=== PATIENT | female | born 1940 | race Caucasian/White ===

== ENCOUNTER 2022-02-18 10:29 | Observation (INO) | payer MEDICARE, OTHER, SELFPAY ==
[2022-02-18 10:30] VITALS: BP 173/81; PULSE 82; RESP 18; TEMP 36.6; O2SAT 99; BMI 29.5
--- NOTE | 2022-02-18 10:49 | ED_ITS ---
HPI - Neuro Symptoms/Deficit General Chief Complaint: Altered Mental Status Stated Complaint: possiable stroke Time Seen by Provider: 02/18/22 10:49 Source: patient Mode of arrival: Ambulatory Limitations: no limitations History of Present Illness HPI Narrative: Patient is an 7-year-old female visiting this area from [place]. She was out with her family for breakfast this morning, about 8:45. She describes sudden onset of dizziness which is now resolved. She had no headache, no visual changes, no focal weakness or numbness. Family members noted mild slurred speech, which click resolved. All symptoms resolved within 15 minutes. She has no history of stroke or TIA. She does not take aspirin or blood thinners. She feels well at this time. She denies recent illness. She has no URI symptoms, cough or dy spnea. She has no chest pain or palpitations. On Anticoagulants: No Review of Systems Constitutional Constitutional: Denies body ache(s), Denies chills, Denies fatigue, Denies fever(s), Denies night sweats and Denies weakness Eyes Eyes: Denies change in vision ENT Ears, Nose, Mouth, and Throat: Reports dizziness, Denies sinus pain, Denies sinus pressure and Denies sore throat Cardiovascular Cardiovascular: Denies chest pain, Denies syncope, Denies rapid heart rate, Denies pedal edema, Reports edema and Denies dyspnea Respiratory Respiratory: Denies cough and Denies dyspnea Gastrointestinal Gastrointestinal: Denies abdominal pain, Denies nausea and Denies vomiting Integumentary/Breasts Skin/Breast: Denies change in pigmentation, Denies new lesions and Denies rash Neurologic Neurologic: Denies confusion, Reports dizziness, Denies syncope and Denies weakness Psychiatric Psychiatric: Denies confusion Endocrine Endocrine: Denies fatigue Hematologic/Lymphatic On Anticoagulants: No Allergic/Immunologic Allergic/Immunologic: Denies seasonal rhinorrhea Patient History Medical History (Updated 02/18/22 @ 18:50 by Alec Smith MD) Adrenal insufficiency Hyperlipidemia Hypertension Hypothyroidism Neurofibromatosis Social History household members: none Smoking Status: Never smoker Smoking Status: Never smoker Substance Use Type: does not use Exam Initial Vital Signs Initial Vital Signs: Vital Signs Temperature 98 F 02/18/22 10:30 Pulse Rate 82 02/18/22 10:30 Respiratory Rate 18 02/18/22 10:30 Blood Pressure 173/81 H 02/18/22 10:30 Pulse Oximetry 99 02/18/22 10:30 Const General: cooperative, comfortable and No acute distress [facility] Head: normocephalic and atraumatic Face and sinus: normal facial exam Mouth: oropharynx normal Throat: posterior oropharynx normal Eyes General: Yes appearance normal, both eyes and all related structures Pupils: PERRL EOM: EOM intact bilaterally and EOM abnormal Other: No visual field cuts. Neck Neck: No lymphadenopathy and other (No bruit) Thyroid: thyroid normal Chest Chest: normal inspection of the chest Resp Auscultation: clear to auscultation bilaterally Cardio Rate: regular rate Rhythm: regular rhythm Heart Sounds: S1 normal, S2 normal, no click, no murmurs and no rubs GI Inspection: normal to inspection Palpation: soft, No mass and No tender Back/Spine/Pelvis Back: normal to inspection and No CVA tenderness Skin General: no rashes or lesions noted Neuro General: patient alert, patient awake, no meningeal signs and no focal motor deficits Extrem General: normal to inspection, full ROM, no pedal edema and no calf tenderness Psych Mental Status: mental status grossly normal Course Course Course Narrative: The patient had at NIHSS of [address] unit this hospital is currently disabled. Head CT and head neck CT was arranged as scheduled hospital. She is returning eminence, she developed left-sided weakness and numbness with place facial droop just prior to arrival. Minutes later as I arrived at her room, symptoms resolved. The episode was probably 10 minutes only. She then had a 2 minute episode of dysarthria, without motor deficits. This quickly resolved. CT results were obtained. She is not a candidate for tPA. There are new acute findings to prevent aspirin. Aspirin 324 mg was given. There are no acute findings on the head CT, or head neck CTA. The case was discussed with Stroke Neurology at [facility], Dr. Osman. She is normal sinus rhythm, her glucose is normal. She has experienced 3 events, all with different findings. There is no obvious focus identified with the evaluation thus far. Dual platelet therapy was suggested. Plavix was added to the aspirin dose.. Follow-up echo, MRI with and without contrast is recommended. The patient has adrenal insufficiency, an extra dose of hydrocortisone was given. The situation was discussed with Dr. Flores, hospitalist. The patient will be admitted for ongoing evaluation. Orders Ordered: ED Orders 02/18/22 10:48 Complete Blood Count AUTO DIFF Stat Comprehensive Metabolic Panel Stat Prothrombin Time INR Stat Troponin & CK Cardiac Panel Stat 02/18/22 10:51 XR chest 1V Stat 02/18/22 10:52 Urine Drug Screen, Rapid Stat 02/18/22 11:20 COVID19 -Nasal RAPID/Pre-Proc Stat Acetaminophen (Acetaminophen 325 Mg Tablet) 650 mg PO Q6HR PRN PRN Reason: pain Enoxaparin Sodium (Enoxaparin 40 Mg/0.4 Ml Syringe) 40 mg SUBCUT DAILY DAVID Sodium Chloride (Normal Saline 0.9%) 1,000 mls @ 100 mls/hr IV CONT DAVID Stop: 02/19/22 04:29 Magnesium Hydroxide (Magnesium Hydroxide 30 Ml Udc) 30 ml PO DAILY PRN PRN Reason: Constipation Discontinued Medications Aspirin (Aspirin 81 Mg Chew Tab) 324 mg PO NOW ONE Stop: 02/18/22 14:31 Last Admin: 02/18/22 14:45 Dose: 324 mg Documented by: ESSIE Atorvastatin Calcium (Atorvastatin 20 Mg Tablet) 60 mg PO NOW ONE Stop: 02/18/22 16:44 Last Admin: 02/18/22 17:01 Dose: 60 mg Documented by: GREGORY Clopidogrel Bisulfate (Clopidogrel 75 Mg Tablet) 75 mg PO NOW ONE Stop: 02/18/22 16:44 Last Admin: 02/18/22 17:02 Dose: 75 mg Documented by: GREGORY Hydrocortisone (Hydrocortisone 10 Mg Tablet) 20 mg PO NOW ONE Stop: 02/18/22 17:09 Sodium Chloride (Normal Saline 0.9%) 1,000 mls @ 150 mls/hr IV CONT DAVID Stop: 02/18/22 18:20 Last Infusion: 02/18/22 14:46 Dose: 150 mls/hr Documented by: Infusion: 02/18/22 11:50 Dose: 0 mls/hr Documented by: Admin: 02/18/22 11:27 Dose: 150 mls/hr Documented by: ESSIE Vital Signs Vital signs: Vital Signs - 8 hr 02/18/22 11:35 Pulse Rate 73 Respiratory Rate 18 Blood Pressure 148/72 H Pulse Oximetry 98 MDM - Neuro Symptoms/Deficit Lab Data Result diagrams: 02/18/22 10:48 02/18/22 10:48 Labs: Lab Results 02/18/22 02/18/22 02/18/22 Range/Units 10:48 10:48 10:48 WBC 11.6 H (4.5-11.0) X10^3/uL RBC 5.06 (4.0-5.2) X10^6/uL Hgb 14.0 (12.0-16.0) g/dL Hct 42.4 (36-46) % MCV 83.7 (80-100) fL MCH 27.7 (26-34) PG MCHC 33.1 (30-36) % RDW 17.3 H (11.6-14.8) % Plt Count 298 (150-400) X10^3/uL Neut % (Auto) 80.4 H (50-75) % Lymph % (Auto) 12.7 L (25-40) % [place] % (Auto) 5.4 (3-14) % Eos % (Auto) 0.9 L (2-4) % Baso % (Auto) 0.6 (0-2) % Neut # (Auto) 9300 H (8181-8956) /uL Lymph # (Auto) 1500 (1210-1929) /uL [place] # (Auto) 600 (0-900) /uL Eos # (Auto) 100 (0-450) /uL Baso # (Auto) 100 (0-100) /uL PT 11.1 (10.1-12.7) SECONDS INR 1.0 (0.9-1.3) Sodium 136 L (137-145) mmol/L Potassium 4.2 (3.4-5.1) mmol/L Chloride 105 (98-107) mmol/L Carbon Dioxide 28 (22-32) mmol/L BUN 23 H (7-17) mg/dL Creatinine 0.83 (0.52-1.04) mg/dL Estimated GFR > 60 (>60) mL/min BUN/Creatinine Ratio 27.7 H (6-22) Glucose 120 H (80-110) mg/dL Calcium 8.8 (8.4-10.2) mg/dL Total Bilirubin 0.6 (0.2-1.3) mg/dL AST 21 (14-36) IU/L ALT 15 (<35) IU/L Alkaline Phosphatase 57 (38-126) U/L Total Creatine Kinase 29 L (30-135) U/L CK-MB (CK-2) TNP CK-MB (CK-2) Rel Index TNP Troponin I < 0.012 (0.01-0.034) ng/mL Total Protein 6.7 (6.3-8.2) g/dL Albumin 3.9 (3.5-5.0) g/dL Globulin 2.8 (1.7-4.1) g/dL Albumin/Globulin Ratio 1.4 (1.0-2.8) SARS-CoV-2 (PCR) (Negative) 02/18/22 Range/Units 11:20 WBC (4.5-11.0) X10^3/uL RBC (4.0-5.2) X10^6/uL Hgb (12.0-16.0) g/dL Hct (36-46) % MCV (80-100) fL MCH (26-34) PG MCHC (30-36) % RDW (11.6-14.8) % Plt Count (150-400) X10^3/uL Neut % (Auto) (50-75) % Lymph % (Auto) (25-40) % [place] % (Auto) (3-14) % Eos % (Auto) (2-4) % Baso % (Auto) (0-2) % Neut # (Auto) (9273-9284) /uL Lymph # (Auto) (7517-6979) /uL [place] # (Auto) (0-900) /uL Eos # (Auto) (0-450) /uL Baso # (Auto) (0-100) /uL PT (10.1-12.7) SECONDS INR (0.9-1.3) Sodium (137-145) mmol/L Potassium (3.4-5.1) mmol/L Chloride (98-107) mmol/L Carbon Dioxide (22-32) mmol/L BUN (7-17) mg/dL Creatinine (0.52-1.04) mg/dL Estimated GFR (>60) mL/min BUN/Creatinine Ratio (6-22) Glucose (80-110) mg/dL Calcium (8.4-10.2) mg/dL Total Bilirubin (0.2-1.3) mg/dL AST (14-36) IU/L ALT (<35) IU/L Alkaline Phosphatase (38-126) U/L Total Creatine Kinase (30-135) U/L CK-MB (CK-2) CK-MB (CK-2) Rel Index Troponin I (0.01-0.034) ng/mL Total Protein (6.3-8.2) g/dL Albumin (3.5-5.0) g/dL Globulin (1.7-4.1) g/dL Albumin/Globulin Ratio (1.0-2.8) SARS-CoV-2 (PCR) Negative (Negative) Point of Care Testing Glucose POC 117 Imaging Data Chest x-ray: Radiologist's Impression: No acute findings. Head CT without contrast/head and neck CTA.: Radiologist's Impression: No acute process involving the arterial tree. ECG Data Attestation: I personally reviewed and interpreted this ECG as follows: (Normal sinus rhythm the 70 beats per minute. Normal intervals. Low-voltage QRS. No acute ST T wave changes.) Critical Care Time Critical Care Time Critical Care Time: Yes Total Critical Care Time: 75 Attestation: Patient's care included initial assessment, repeat clinical evaluations, evaluation of Radiology, EKG and lab data. Multiple clinical decisions were made. Expert consultation was obtained. The clinical situation was discussed with the patient. The case was presented to the hospitalist for admission. Discharge Plan Departure Patient Disposition: Home Clinical Impression: Brain TIA, Hypothyroidism, Hypertension, Hyperlipidemia, Adrenal insufficiency
--- NOTE | 2022-02-18 10:51 | DI.RAD.S_ITS ---
PROCEDURE: XR CHEST 1V INDICATIONS: TIA TECHNIQUE: One view of the chest was acquired. COMPARISON: None. FINDINGS: Surgical changes and devices: None. Lungs and pleura: Lungs are clear. No pleural effusions or pneumothorax. Mediastinum: Mediastinal contours appear normal. Heart size is normal. Bones and chest wall: No suspicious bony lesions. Overlying soft tissues appear unremarkable. IMPRESSION: No acute process. Dictated by: Chantal Schaffer M.D. on 02/18/2022 at 11:10 Approved by: Chantal Schaffer M.D. on 02/18/2022 at 11:11
[2022-02-18 11:00] LABS: Add Manual Diff / Slide Review NO; Basophils Absolute Auto 100 /uL (0-100); Basophils Percent Auto 0.6 % (0-2); Eosinophils Absolute Auto 100 /uL (0-450); Eosinophils Percent Auto 0.9 % (2-4); Hematocrit 42.4 % (36-46); Lymphocytes Absolute Auto 1500 /uL (1100-4500); Lymphocytes Percent Auto 12.7 % (25-40); Mean Corpuscular HGB Conc 33.1 % (30-36); Mean Corpuscular Hemoglobin 27.7 PG (26-34); Mean Corpuscular Volume 83.7 fL (80-100); Monocytes Absolute Auto 600 /uL (0-900); Monocytes Percent Auto 5.4 % (3-14); Neutrophils Absolute Auto 9300 /uL (1500-7000); Neutrophils Percent Auto 80.4 % (50-75); Platelet Count 298 X10^3/uL (150-400); Red Blood Cell Count 5.06 X10^6/uL (4.0-5.2); Red Cell Distribution Width 17.3 % (11.6-14.8); White Blood Cell Count 11.6 X10^3/uL (4.5-11.0)
[2022-02-18 11:02] LABS: Prothrombin Time 11.1 SECONDS (10.1-12.7)
[2022-02-18 11:08] LABS: Alanine Aminotransferase 15 IU/L (<35); Albumin 3.9 g/dL (3.5-5.0); Albumin Globulin Ratio 1.4 (1.0-2.8); Alkaline Phosphatase 57 U/L (38-126); Aspartate Aminotransferase 21 IU/L (14-36); BUN Creatinine Ratio 27.7 (6-22); Bilirubin Total 0.6 mg/dL (0.2-1.3); Blood Urea Nitrogen 23 mg/dL (7-17); Calcium 8.8 mg/dL (8.4-10.2); Carbon Dioxide 28 mmol/L (22-32); Chloride 105 mmol/L (98-107); Creatine Kinase 29 U/L (30-135); Estimated Glomerular Filt Rate > 60 mL/min (>60); Globulin 2.8 g/dL (1.7-4.1); Glucose 120 mg/dL (80-110); HEMOLYSIS 39 (0-50); Potassium 4.2 mmol/L (3.4-5.1); Sodium 136 mmol/L (137-145); Total Protein 6.7 g/dL (6.3-8.2)
[2022-02-18 11:18] LABS: Troponin I < 0.012 ng/mL (0.01-0.034)
[2022-02-18] MEDS: SODIUM CHLORIDE 0.9% 1,000 ML 150 ML IV (11:27)
[2022-02-18 11:34] LABS: COVID19 -Nasal RAPID Negative (Negative)
[2022-02-18 11:35] VITALS: BP 148/72; PULSE 73; RESP 18; O2SAT 98
--- NOTE | 2022-02-18 11:40 | PC.NURSE ---
Obtained pt care. Introduced self to pt. Pt is resting and reports no symptoms. She is A&O x 4. Plan to transfer to [facility] for CT scan then return to [facility] talked about with pt and daughter due to CT scanner being down. Pt has allergies to codeine, lactose and propoxyphene. Call light within reach. Pt reports she will call if any changes in symptoms.
--- NOTE | 2022-02-18 11:50 | PC.NURSE ---
Report given to [facility] for transport to [facility] for CT scan. Pt is saline locked.
--- NOTE | 2022-02-18 11:56 | PC.NURSE ---
Pt left with [facility] at 1156.
--- NOTE | 2022-02-18 14:27 | PC.NURSE ---
Pt arrived back with [facility] ambulance. EMT reported symptoms have begun again at 1410. Pt exhibited a slight left facial droop, left sided weakness and decreased sensation. Symptoms began resolving spontaneously within 6 mins of starting. Pt denied pain, blurred vision, or headache. MD Smith at bedside. BS check. GBC 130.
--- NOTE | 2022-02-18 14:31 | PC.NURSE ---
EMS reports symptoms are improving in comparison to 1410. Pt also reports symptoms feel like they are improving. By time MD at bedside 1425, all symptoms resolved and back to baseline.
--- NOTE | 2022-02-18 14:43 | PC.NURSE ---
1440: Pt passes swallow eval. Immediately following she has difficulty finding words. Notified MD Smith. He came to bedside. 324mg aspirin given per MD order and NOV.
[2022-02-18] MEDS: ASPIRIN 81 MG CHEW TAB 324 MG PO (14:45)
--- NOTE | 2022-02-18 14:46 | PC.NURSE ---
1446: Pt reports it is now easy to find my words again. Notified MD Smith.
--- NOTE | 2022-02-18 15:00 | PC.NURSE ---
Pt friend at bedside.
[2022-02-18 16:51] VITALS: BMI 29.5
[2022-02-18] MEDS: ATORVASTATIN 20 MG TABLET 60 MG PO (17:01)
[2022-02-18] MEDS: CLOPIDOGREL 75 MG TABLET PO (17:02)
[2022-02-18 18:19] VITALS: BP 158/79; PULSE 73; RESP 20; TEMP 36.8; O2SAT 100
--- NOTE | 2022-02-18 18:23 | DI.MRI.S_ITS ---
PROCEDURE: MR HEAD/BRAIN WO/W CON INDICATIONS: TIA, hx neurofibromatosis, r/o brain mass TECHNIQUE: Noncontrast axial T1 spin echo, axial T2 fast spin echo, sagittal and axial FLAIR, coronal T2 fast spin echo, axial gradient echo, axial diffusion and ADC through the brain. After the administration of contrast, axial and coronal 3D VIBE or T1 spin echo with fat saturation through the brain. COMPARISON: None. FINDINGS: Image quality: Excellent. CSF Spaces: Basal cisterns are patent. No extra-axial fluid collections. Ventricles are normal in size and shape. Brain: No midline shift. No intracranial bleeds or masses. No abnormal intracranial enhancement. The brainstem appears normal. Diffusion-weighted images demonstrate no acute ischemic insults. No chronic ischemic insults. Normal intravascular flow voids are present. Skull and face: Multiple skin lesions consistent history of neurofibromatosis are seen. Calvarial marrow is normal in signal. Orbits appear normal. Sinuses: Sinuses and mastoids appear clear. IMPRESSION: 1. No acute intracranial abnormality. No acute ischemia. 2. No abnormal post gadolinium enhancement. 3. No intracranial masses. Dictated by: Shayan Youngblood M.D. on 02/19/2022 at 10:15 Approved by: Shayan Youngblood M.D. on 02/19/2022 at 10:20
--- NOTE | 2022-02-18 18:24 | DI.ECHO.S_ITS ---
[facility] +---------+ [facility] +---------+ : : [address] : : : : [id number] : : : : Phone: [phone]+ Echocardiogram Report + + :Name: ABHILASH CHENG Study Date: 02/19/2022 Height: 57 in : :[facility] ReadingLocation: Weight: 136 lb : : Gender: Female BSA: 1.5 m2 : :: 1940 Age: 81 yrs BP: 151/75 mmHg: :Reason For Study: TIA : :Ordering Physician: MICHELLE, : :BETHANY Performed By: Ashley Hobbs : :Referring: BETHANY MARTINEZ : + + Interpretation Summary The left ventricle is normal in size. Left ventricular systolic function appears normal without focal wall motion abnormalities. The ejection fraction is estimated to be 65-70%. The right ventricle is normal in size and function. Right ventricular systolic pressure is estimated to be 30 mmHg plus the clinically estimated CVP which cannot be estimated on this exam. The left atrium is severely dilated. Right atrial size is normal. There is mild mitral regurgitation. The aortic root is normal size. No obvious source for TIA noted on today's echocardiogram. Procedure: A two-dimensional transthoracic echocardiogram with color flow and Doppler was performed. The study quality was technically adequate. There is no prior echocardiogram noted for this patient. The patient was in sinus rhythm with heart rates between 67-71 bpm during the exam. Left Ventricle: The left ventricle is normal in size. Proximal septal thickening is noted. Left ventricular systolic function appears normal without focal wall motion abnormalities. The ejection fraction is estimated to be 65- 70%. Diastolic function could not be accurately assessed due to contradictory data. Right Ventricle: The right ventricle is normal in size and function. Atria: The left atrium is severely dilated. Right atrial size is normal. There is no Doppler evidence for an interatrial shunt. Mitral Valve: The mitral valve leaflets appear mildly thickened, but open well. There is mild mitral regurgitation. Aortic Valve: The aortic valve is trileaflet. The aortic valve opens well. There is no aortic valve stenosis. No aortic regurgitation is present. Tricuspid Valve: The tricuspid valve is normal in structure and function. There is mild tricuspid regurgitation. Right ventricular systolic pressure is estimated to be 30 mmHg plus the clinically estimated CVP which cannot be estimated on this exam. Pulmonic Valve: The pulmonic valve leaflets are thin and pliable; valve motion is normal. There is trace pulmonic regurgitation. Great Vessels: The aortic root is normal size. The ascending aorta could not be visualized. The inferior vena cava was not visualized. Pericardium/ Pleura There is no pericardial effusion. There is no pleural effusion. MMode/2D Measurements & Calculations LVIDd: 4.5 cm LVOT diam: 2.0 cm LVIDs: 2.9 cm Ao root diam: 3.0 cm FS: 35.0 % Ao Arch Diam (Prox Trans): 2.8 cm IVSd: 1.0 cm LVPWd: 0.73 cm LV thomas. diameter/BSA (cm/m^2): 2.9 LV sys. diameter/BSA (cm/m^2): 1.9 LA A2 area: 28.2 cm2 RA long axis: 5.1 cm LA A4 area: 24.3 cm2 RA area: 15.4 cm2 LA length (vol): 6.3 cm RA vol: 39.3 ml LA vol: 92.7 ml RA : 25.7 ml/m2 LA vol index: 60.7 ml/m2 RVD1 (basal): 3.2 cm RVD2 (mid): 3.0 cm TAPSE: 2.1 cm Doppler Measurements & Calculations Ao V2 max: 178.5 cm/sec LVOT Max Shad: 97.1 cm/sec Ao V2 mean: 115.0 cm/sec LV V1 max P.8 mmHg Ao max P.7 mmHg LV V1 VTI: 23.7 cm Ao mean P.9 mmHg ELMER(I,D): 2.3 cm2 Ao V2 VTI: 33.6 cm ELMER(V,D): 1.8 cm2 sev ratio: 0.70 ELMER indexed to BSA (cm^2/m^2): 1.5 MV E max shad: 93.5 cm/sec TR max shad: 275.5 cm/sec MV A max shad: 92.6 cm/sec TR max P.4 mmHg MV E/A: 1.0 PA V2 max: 104.2 cm/sec Med Peak E' Shad: 6.6 cm/sec PA V2 mean: 71.5 cm/sec E/E' med: 14.1 PA mean P.3 mmHg Lat Peak E' Sahd: 8.7 cm/sec PA pr(Accel): 44.7 mmHg E/E' lat: 10.8 E/e' average: 12.4 MV dec time: 0.22 sec SV(LVOT): 76.3 ml Reading Physician:04:45 PM
--- NOTE | 2022-02-18 18:36 | PM.HP.1 ---
History of Present Illness History of Present Illness Date Patient Seen: 02/18/22 Time Patient Seen: 18:00 Chief complaint: possible stroke Narrative: 81-year-old female visiting from [place] with history of neurofibromatosis, chronic adrenal insufficiency, hypertension, hyperlipidemia, surgical hypothyroidism, RLS presented to ED with recurrent TIA symptoms. At about 9:00 a.m. this morning she had 20 minute episode of aphasia and left arm and leg weakness which lasted about 20 minutes. She arrived by private vehicle to the ED. Her stroke scale was 0 when came in to ED. Her initial BP was 175/81. She was sent over to [facility] for brain imaging and reportedly had a normal CT and CTA there. As she was arriving back to our ED with medics she developed a recurrent episode of aphasia and left-sided weakness which lasted 6 minutes and another episode a short time later which lasted another 6 minutes. Later on in ED she had a similar episode which lasted about 2 minutes. Finally she had a 4 minute episode of aphasia only shortly prior to transferring from ER bed to floor bed. She denies prior history of stroke or TIA or atrial fibrillation or CAD. Denies headache, loss of vision or diplopia, chest pains or dyspnea. COVID PCR was negative in ED. Additionally for the past 10 days she has been on cephalexin for cellulitis of occipital scalp and back of neck. She did [place] the airport and bruised her right leg. She does not have history of recurrent falls. She is on chronic hydrocortisone replacement. 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 Additional past history includes cholecystectomy, appendectomy, gastric resection for bleeding ulcer. Family history notable for stroke and father and a brother. Social history notable for no history of smoking, no alcohol use. Patient History Medical History (Updated 02/18/22 @ 18:50 by Alec Smith MD) Adrenal insufficiency Hyperlipidemia Hypertension Hypothyroidism Neurofibromatosis Family & Social History Safety & Behavioral: Feels Safe in Current Yes Environment Been Physically Hurt or No Threatened By a Person Tobacco & Substance use: Smoking Status Never smoker Substance Use Type does not use Exam Vital Signs (past 8 hours): - 02/18/22 11:35 02/18/22 18:19 Temperature 98.3 F Pulse Rate 73 73 Respiratory Rate 18 20 Blood Pressure 148/72 H 158/79 H Pulse Oximetry 98 100 Oxygen Delivery Method Room Air Oxygen Flow Rate 0 Narrative Exam Narrative: General: Alert well-developed well-nourished very pleasant female in no acute distress Skin: Diffuse extensive neurofibromatosis on head, trunk and all extremities. There is area of increased macular erythema on the back of head and neck. HEENT: Pupils equal and reactive, EOMI, face symmetric and tongue midline Neck: No lymphadenopathy Lungs: Clear to auscultation Heart: Normal S1 and S2, regular rate and rhythm, no murmur Abdomen: Soft, nontender, no HSM Extremities: No cyanosis or edema, there is a superficial bruise on the right lu from known fall Neurological: Oriented x3, speech fluent without aphasia, normal verbal comprehension, affect normal, no pronator drift, no leg weakness, normal finger to nose and heel to lu Objective Labs Result Diagrams: 02/18/22 10:48 02/18/22 10:48 Labs: Laboratory Results - last 24 hr 02/18/22 02/18/22 02/18/22 10:48 10:48 10:48 WBC 11.6 H RBC 5.06 Hgb 14.0 Hct 42.4 MCV 83.7 MCH 27.7 MCHC 33.1 RDW 17.3 H Plt Count 298 Neut % (Auto) 80.4 H Lymph % (Auto) 12.7 L [place] % (Auto) 5.4 Eos % (Auto) 0.9 L Baso % (Auto) 0.6 Neut # (Auto) 9300 H Lymph # (Auto) 1500 [place] # (Auto) 600 Eos # (Auto) 100 Baso # (Auto) 100 PT 11.1 INR 1.0 Sodium 136 L Potassium 4.2 Chloride 105 Carbon Dioxide 28 BUN 23 H Creatinine 0.83 Estimated GFR > 60 BUN/Creatinine Ratio 27.7 H Glucose 120 H Calcium 8.8 Total Bilirubin 0.6 AST 21 ALT 15 Alkaline Phosphatase 57 Total Creatine Kinase 29 L CK-MB (CK-2) TNP CK-MB (CK-2) Rel Index TNP Troponin I < 0.012 Total Protein 6.7 Albumin 3.9 Globulin 2.8 Albumin/Globulin Ratio 1.4 SARS-CoV-2 (PCR) 02/18/22 11:20 WBC RBC Hgb Hct MCV MCH MCHC RDW Plt Count Neut % (Auto) Lymph % (Auto) [place] % (Auto) Eos % (Auto) Baso % (Auto) Neut # (Auto) Lymph # (Auto) [place] # (Auto) Eos # (Auto) Baso # (Auto) PT INR Sodium Potassium Chloride Carbon Dioxide BUN Creatinine Estimated GFR BUN/Creatinine Ratio Glucose Calcium Total Bilirubin AST ALT Alkaline Phosphatase Total Creatine Kinase CK-MB (CK-2) CK-MB (CK-2) Rel Index Troponin I Total Protein Albumin Globulin Albumin/Globulin Ratio SARS-CoV-2 (PCR) Negative Assessment & Plan Assessment & Plan narrative: 1. Acute transient ischemic attack -patient presents with multiple episodes of aphasia and left-sided weakness, risk factors of hypertension and hyperlipidemia -additionally neurofibromatosis carries high risk of certain brain tumors could rarely present this way -CT/CTA unremarkable at [facility] -admit to observation -neuro check q.4 hours -telemetry -anti-platelet therapy: Aspirin 81 mg q.d., clopidogrel 75 mg q.d. -statin therapy: Atorvastatin 40 mg q.d. (consider discharge 40-80 mg q.d.) -NS x1 L -brain MR with and without contrast -echo -lipid panel 2. Adrenal insufficiency status post bilateral adrenalectomy -received extra stress dosed 20 mg hydrocortisone in ED -continue hydrocortisone 20 mg a.m. and 10 mg HS per patient's home routine -continue fludrocortisone 0.05 mg daily 3. Surgical hypothyroidism -continue patient's levothyroxine per home routine 4. Restless leg syndrome -continue patient's pramipexole takes 0.25 mg b.i.d. usually 5. Hypertension -continue patient's home meds HCT see 12.5 mg q.d., lisinopril 40 mg q.d., amlodipine 5 mg q.d. 6. Cellulitis of scalp and neck -per patient's HPOA appearance of cellulitis is much better since on oral antibiotic since 02/08 although there is still mild erythema in the area -continue cephalexin 500 mg q.i.d. for few more days and topical mupirocin t.i.d. Code status: Patient has clear wishes for DNR. Surrogate decision maker: Patient's friend Yolande who she states is like a daughter to her. DVT prophylaxis: Lovenox Time Spent With Patient Critical Care time: I spent a total of [] minutes of critical care time on this patient's care today; this time is exclusive of procedural time.
[2022-02-18 19:45] VITALS: O2SAT 97
[2022-02-18] MEDS: SODIUM CHLORIDE 0.9% 1,000 ML 100 ML IV (19:56)
[2022-02-18 20:30] VITALS: O2SAT 97
[2022-02-18] MEDS: cephALEXin 250 MG CAPSULE 500 MG PO (20:42)
[2022-02-18] MEDS: PRAMIPEXOLE 0.25 MG TABLET PO (20:42)
[2022-02-18 21:14] LABS: Cholesterol 203 mg/dL (140-199); HDL Cholesterol 75 mg/dL (40-60); LDL Cholesterol Calculated 100 mg/dL (<100); Triglycerides 142 mg/dL (35-150)
[2022-02-18 21:18] LABS: Hemoglobin A1C% w Est Avg Glu 5.8 % (4.0-6.0)
[2022-02-18] MEDS: PANTOPRAZOLE DR 20 MG TABLET PO (22:27)
[2022-02-18] MEDS: HYDROCORTISONE 100 MG/2 ML VIAL 10 MG IV (22:27)
[2022-02-18 22:30] VITALS: BP 130/61; PULSE 79; RESP 16; TEMP 37.3; O2SAT 97
[2022-02-19] VITALS (7 sets, daily range): BP systolic 129–163; BP diastolic 68–86; PULSE 71–74; RESP 14–18; TEMP 36.4–36.9; O2SAT 94–97
--- NOTE | 2022-02-19 04:11 | PC.NURSE ---
Notified Dr. Landrum that oral form of hydrocortisone unavailable, changed order to IV hydrocortisone. Medication administered as ordered.
[2022-02-19] MEDS: LEVOTHYROXINE 112 MCG TABLET 168 MCG PO (05:46)
[2022-02-19] MEDS: ENOXAPARIN 40 MG/0.4 ML SYRINGE SUBCUT (08:30)
[2022-02-19] MEDS: hydrOXYzine pamoate 25 MG CAPSULE 50 MG PO (08:30)
[2022-02-19] MEDS: lisinopriL 20 MG TABLET 40 MG PO (08:30)
[2022-02-19] MEDS: hydroCHLOROthiazide 25 MG TABLET 12.5 MG PO (08:32)
[2022-02-19] MEDS: AMLODIPINE 5 MG TABLET PO (08:32)
[2022-02-19] MEDS: ATORVASTATIN 20 MG TABLET 40 MG PO (08:32)
[2022-02-19] MEDS: cephALEXin 250 MG CAPSULE 500 MG PO ×2 (08:32→13:53)
[2022-02-19] MEDS: FLUDROCORTISONE 0.1 MG TABLET 0.05 MG PO (08:33)
--- NOTE | 2022-02-19 08:38 | CM.DANOTE ---
DCP: Case received, EMR reviewed and met with patient. Introduced self and role. Was able to obtain information regarding patient's baseline activity level prior to hospitalization, as well as her current living situation. DCP assessment completed with information currently available. Patient is an 81 year old female who admitted yesterday afternoon to the care of the hospitalist team. PCP: Dr. Clarke Payer: confirmed: [employer]/Medicare. Patient came to the hospital via private vehicle secondary to dizziness, some difficulties with word finding.Patient is here visiting family from [place], has been here since last Sat. Patient had some slurred speech at one point, which now has resolved. Patient ended up going to [facility] for CT, since the machine at this hospital was disabled. Patient was diagnosed with acute TIA. Met with patient in her room. She is pleasant, alert and oriented, hard of hearing. Confirmed that she is here from [place], she resides alone, is independent at her baseline and drives. She is currently staying with her grand daughter, Claudia, who lives in [place]. She stated, she was planning on going back home on Sat. P: DCP to continue to follow. Patient does not have current therapy orders, will inquire at team rounds. Patient should be able to go home when she is deemed medically stable. Lulu Strong RN/Office Machine Mechanic Discharge Planning/Care Management Advanced directive, confirm from FAMILY Start: 02/18/22 18:38 Freq: Q24H Status: Active Protocol: Document 02/18/22 18:38 (Rec: 02/18/22 20:52 [id number]) Advance Directive, confirm on record Time 20:52 Person contacted pt Copy received No CM Discharge Assessment Start: 02/19/22 08:37 Freq: Status: Active Protocol: Document 02/19/22 08:37 (Rec: 02/19/22 08:38 [id number]) Discharge Planning Assessment Assigned Public Health Registrar Lulu Strong RN/Office Machine Mechanic Advance Directives? Yes Advance Directives on File No History Provided By Patient,Friend,Medical Record Prior Living Arrangements House Household Members none Type of transporation used prior to Drives own vehicle admit Independent with ADL's Yes Is patient alert and oriented? Yes Caregiver for Another No Barriers to Discharge No Discharge Plan Home Transportation Arrangement Family Referrals Initiated None needed Whiteboard Updated in Patient Room with Yes name and ext. # of Public Health Registrar Review Status In Process Next Review Type Continued Stay Review
[2022-02-19] MEDS: PANTOPRAZOLE DR 20 MG TABLET PO (08:41)
[2022-02-19] MEDS: PRAMIPEXOLE 0.25 MG TABLET PO (08:41)
[2022-02-19] MEDS: HYDROCORTISONE 100 MG/2 ML VIAL 20 MG IV (08:42)
[2022-02-19] MEDS: SODIUM CHLORIDE 0.9% FLUSH 10 ML IV (09:00)
--- NOTE | 2022-02-19 14:03 | PC.NURSE ---
Patient remains without complaints this shift, she is eager to get discharged today. MR completed and ECHO completed, a waiting results. Patient resting in bed with her friend at bedside, she refers to her as her daughter. Tele shows SR. VSS. Denies pain.
--- NOTE | 2022-02-19 14:15 | PM.PN.1 ---
Exam Vital Signs (past 8 hours): - 02/19/22 07:31 02/19/22 07:35 02/19/22 11:15 Temperature 98.0 F 98.5 F Pulse Rate 71 74 Respiratory Rate 18 18 Blood Pressure 146/77 H 129/68 Pulse Oximetry 94 96 97 Oxygen Delivery Method Room Air Oxygen Flow Rate 0 Objective Labs Result Diagrams: 02/18/22 10:48 02/18/22 10:48 Labs: Laboratory Results - last 24 hr 02/18/22 02/18/22 10:48 10:48 Hemoglobin A1c 5.8 Triglycerides 142 Cholesterol 203 H LDL Cholesterol, Calc 100 HDL Cholesterol 75 H [facility] Medical History (Updated 02/18/22 @ 18:50 by Alec Smith MD) Adrenal insufficiency Hyperlipidemia Hypertension Hypothyroidism Neurofibromatosis Social History household members: none Smoking Status: Never smoker Assessment & Plan Assessment & Plan narrative: 1. Acute transient ischemic attack -patient presents with multiple episodes of aphasia and left-sided weakness, risk factors of hypertension and hyperlipidemia -additionally neurofibromatosis carries high risk of certain brain tumors could rarely present this way -CT/CTA unremarkable at [facility] -admit to observation -neuro check q.4 hours -telemetry -anti-platelet therapy: Aspirin 81 mg q.d., clopidogrel 75 mg q.d. -statin therapy: Atorvastatin 40 mg q.d. (consider discharge 40-80 mg q.d.) -NS x1 L -brain MR with and without contrast -echo -lipid panel 2. Adrenal insufficiency status post bilateral adrenalectomy -received extra stress dosed 20 mg hydrocortisone in ED -continue hydrocortisone 20 mg a.m. and 10 mg HS per patient's home routine -continue fludrocortisone 0.05 mg daily 3. Surgical hypothyroidism -continue patient's levothyroxine per home routine 4. Restless leg syndrome -continue patient's pramipexole takes 0.25 mg b.i.d. usually 5. Hypertension -continue patient's home meds HCT see 12.5 mg q.d., lisinopril 40 mg q.d., amlodipine 5 mg q.d. 6. Cellulitis of scalp and neck -per patient's HPOA appearance of cellulitis is much better since on oral antibiotic since 05/19 although there is still mild erythema in the area -continue cephalexin 500 mg q.i.d. for few more days and topical mupirocin t.i.d. Code status:? Patient has clear wishes for DNR.? Surrogate decision maker: Patient's friend Yolande who she states is like a daughter to her.? DVT prophylaxis: Lovenox Time Spent With Patient Critical Care time: I spent a total of [] minutes of critical care time on this patient's care today; this time is exclusive of procedural time.
--- NOTE | 2022-02-19 14:48 | P.DS_ITS ---
History of Present Illness History of Present Illness Date Patient Seen: 02/19/22 Chief complaint: possible stroke Narrative: Patient feeling well, no neurological symptoms. Discharge Providers Provider Date of admission: 02/18/22 16:44 Discharge Date: 02/19/22 Discharge provider: Coleen Thompson MD Summary Hospital Course Hospital Course: Transient ischemic attacks Status at Discharge Cognitive/behavioral status at discharge: oriented Functional status at discharge: independent ambulation Exam Vital Signs (past 8 hours): - 02/19/22 07:31 02/19/22 07:35 02/19/22 11:15 Temperature 98.0 F 98.5 F Pulse Rate 71 74 Respiratory Rate 18 18 Blood Pressure 146/77 H 129/68 Pulse Oximetry 94 96 97 Oxygen Delivery Method Room Air Oxygen Flow Rate 0 Const General: cooperative and healthy appearing Other: Noted skin lesions for Neurofibrimatosis. HENMT Head: normocephalic and atraumatic Other: cellulitis at back of head near neck cleared. Neck Other: cellulitis appeared cleared, Resp Effort & Inspection: normal respiratory effort Skin Other: Neurofibromatosis lesions. Neuro General: moves all extremities and no focal motor deficits Objective Labs Result Diagrams: 02/18/22 10:48 02/18/22 10:48 Labs: Laboratory Results - last 24 hr 02/18/22 02/18/22 10:48 10:48 Hemoglobin A1c 5.8 Triglycerides 142 Cholesterol 203 H LDL Cholesterol, Calc 100 HDL Cholesterol 75 H PFSH Medical History (Updated 02/18/22 @ 18:50 by Alec Smith MD) Adrenal insufficiency Hyperlipidemia Hypertension Hypothyroidism Neurofibromatosis Social History household members: none Smoking Status: Never smoker Discharge Assessment & Plan Assessment and Plan Assessment: 1. Acute transient ischemic attack Images normal. MRI today normal. No new symptoms today. ECHO done report pending. Discharging on ASA 81 mg and Plavix 75 mg daily. 2. Adrenal insufficiency status post bilateral adrenalectomy receiving her regular doses of replacement. 3. Surgical hypothyroidism -continue patient's levothyroxine per home routine 4. Restless leg syndrome -continue patient's pramipexole takes 0.25 mg b.i.d. usually 5. Hypertension -continue patient's home meds HCT see 12.5 mg q.d., lisinopril 40 mg q.d., amlodipine 5 mg q.d. 6. Cellulitis of scalp and neck Kelfex will be completed today. Code status:? Patient has clear wishes for DNR.? Surrogate decision maker: Patient's friend Yolande who she states is like a daugh ter to her.? Plan of Treatment: Followup Primary Care in [place] on February 22, 2022. Discharge Plan Discharge Plan Patient Disposition: Home Provider Discharge Comment: Discharge to return to [place] with Family on February 21, 2022. Followup with Primary Care Physician on February 22, 2022. Discharge orders & Medications Prescriptions: New atorvastatin [Lipitor] 20 mg Tablet 40 mg PO DAILY Qty: 30 0RF acetaminophen 325 mg Tablet 650 mg PO Q6HR PRN (Reason: pain) Qty: 100 0RF pantoprazole 20 mg Tablet,Delayed Release (Dr/Ec) 20 mg PO 0700,2100 Qty: 60 0RF magnesium hydroxide [Milk of Magnesia] 400 mg/5 mL Suspension 30 ml PO DAILY PRN (Reason: Constipation) Qty: 250 0RF clopidogrel [Plavix] 75 mg tablet 75 mg PO DAILY Qty: 30 0RF aspirin 81 mg tablet,delayed release (DR/EC) 81 mg PO DAILY Qty: 30 0RF Continued mupirocin 2 % ointment 1 applic TOPICAL TID 0RF Label Comments: APPLY TOPICALLY THREE TIMES A DAY Rx Instructions: Apply to back of neck. cephalexin 500 mg capsule 500 mg PO QID 0RF Rx Instructions: Started 02/08, use for 10 days. hydrochlorothiazide 12.5 mg tablet 12.5 mg PO DAILY 0RF Label Comments: TAKE ONE TABLET BY MOUTH EVERY DAY amlodipine 5 mg tablet 5 mg PO DAILY 0RF levothyroxine 112 mcg tablet 112 mcg PO DAILY 0RF Rx Instructions: Take 112mcg , Sat, , Sat, Sat, Sun. levothyroxine 112 mcg tablet 168 mcg PO WEEKLY 0RF Rx Instructions: Take 168mcg on Saturday. pramipexole 0.125 mg tablet 0.375 mg PO QID PRN (Reason: Restless Leg(S)) 0RF pramipexole 0.125 mg tablet 0.375 mg PO BID 0RF Rx Instructions: took ordered dose on 02/18/22 alendronate 70 mg tablet 70 mg PO WEEKLY 0RF Rx Instructions: Takes one tab Q7days in am on Mondays. omeprazole 20 mg capsule,delayed release(DR/EC) 20 mg PO BID 0RF fludrocortisone 0.1 mg tablet 0.05 mg PO DAILY 0RF hydrocortisone 20 mg tablet 20 mg PO QAM 0RF hydrocortisone 20 mg tablet 10 mg PO BEDTIME 0RF lisinopril 40 mg tablet 40 mg PO QAM 0RF hydroxyzine HCl 25 mg tablet 50 mg PO BID PRN (Reason: Itching) 0RF hydroxyzine HCl 25 mg tablet 50 mg PO QAM 0RF levocetirizine 5 mg Tablet 5 mg PO BID 0RF calcium carbonate 600 mg calcium (1,500 mg) Tablet 600 mg PO BID 0RF Discontinued atorvastatin 10 mg tablet 10 mg PO DAILY 0RF Discharge Data Attending Provider: Naif Flores
[2022-02-19] MEDS: CLOPIDOGREL 75 MG TABLET PO (15:29)
[2022-02-19] MEDS: ASPIRIN 81 MG CHEW TAB PO (15:29)
--- NOTE | 2022-02-19 15:54 | PC.NURSE ---
pt given one time dose of plavix and chewable aspirin immediately prior to discharge. Pt denies pain, states feeling wonderful, and VSS. Pt was given discharge packet, signed and verbally confirmed understanding of all information covered. Denies having any questions or concerns. Pt discharged with all personal effects they arrived with. Pt was escorted by hospital personnel by wheelchair with support person, Yolande, to [facility] on 02/19/2022 at 1545.
== END 2022-02-19 15:45 | disposition home or self-care (01) ==
LOC: ED 10:49 → AC 16:44
PROVIDERS: Admitting Provider Internal Medicine; Emergency Provider Emergency Medicine; Referring Provider Emergency Medicine; Visit Provider Internal Medicine
DX: G45.9 Transient cerebral ischemic attack, unspecified (principal); R29.700 NIHSS score 0; G25.81 Restless legs syndrome; E89.0 Postprocedural hypothyroidism; E27.49 Other adrenocortical insufficiency; I10 Essential (primary) hypertension; L03.221 Cellulitis of neck; L03.811 Cellulitis of head [any part, except face]; Z20.822 Contact with and (suspected) exposure to COVID-19
CPT/HCPCS: 36415; 70553; 71045; 80053; 80061; 81003; 82550; 82962; 83036; 84484; 85025; 85610; 87635; 93005; 93306; 94760; 96372; 96374; 99285; C9803; G0378; A9579; J1650; J1720